=== PATIENT | female | born 1990 | race African-American/Black ===

== ENCOUNTER 2017-06-14 10:51 | Emergency (ER) | payer OTHER ==
[~2017-06-14] VITALS: Ht 170.2 cm; Wt 86.2 kg
[2017-06-14] MEDS ORDERED: HYDROCODONE-AP1 EAC6 PO (12:24)
[2017-06-14] MEDS ORDERED: FLONASE 0.05%50 MCG NASAL (13:33)
[2017-06-14] MEDS ORDERED: NAPROSYN500 MG PO (13:33)
[2017-06-14] MEDS ORDERED: NORFLEX100 MG PO (13:33)
[2017-06-14 13:55] VITALS: BP 132/80
== END 2017-06-14 14:00 | disposition home or self-care (01) ==
LOC: ER 10:51
DX: G44.209 Tension-type headache, unspecified, not intractable (principal); J34.89 Other specified disorders of nose and nasal sinuses